=== PATIENT | female | born 1965 | race Caucasian/White ===

== ENCOUNTER 2017-10-26 17:17 | Emergency (ER) | payer OTHER ==
[2017-10-26 17:18] VITALS: BMI 23.3
[2017-10-26 17:32] VITALS: TEMP 99; O2SAT 100
--- NOTE | 2017-10-26 17:53 | ED PDOC ---
Arrival/HPI - General Chief Complaint: Headache Time Seen by Provider: 10/26/17 17:40 Historian: Patient - History of Present Illness Narrative History of Present Illness (Text): 10/26/17 17:45 Dalia Gann is a 51 year old, whose past medical history includes photophobia and tubal ligation, who presents to the emergency department complaining of right-sided throbbing headache with associated nausea and vomiting for 4 days. Patient notes that she has had similar headaches for 30 years. Patient's last imaging was a normal CT one year ago. Patient is an occasional drinker but does not do any drugs or drink any alcohol. Patient has no other complaints at this time. Time/Duration: < week Symptom Onset: Gradual Symptom Course: Unchanged Context: Home Associated Symptoms (Text): 10/26/17 17:57 Right sided throbbing headache similar to multiple previous similar headaches. Last imaging approximately one year ago. Some nausea and vomiting. Photophobia. No abdominal pain. No numbness tingling or paresthesias. No weakness. No relief with [id number] medication. No neck pain. No fever or chills. No trauma. Past Medical History - Provider Review Nursing Documentation Reviewed: Yes - Infectious Disease Hx of Infectious Diseases: None - Reproductive Menopause: No - Cardiac Hx Hypertension: Yes - Pulmonary Hx Respiratory Disorders: No - Neurological Hx Neurological Disorder: No - HEENT Hx HEENT Disorder: No - Renal Hx Renal Disorder: No - Endocrine/Metabolic Hx Diabetes Mellitus Type 2: Yes - Hematological/Oncological Hx Blood Disorders: No - Integumentary Hx Dermatological Disorder: No - Musculoskeletal/Rheumatological Hx Falls: No - Gastrointestinal Hx Gastrointestinal Disorders: No - Genitourinary/Gynecological Hx Genitourinary Disorders: No - Psychiatric Hx Psychophysiologic Disorder: No Hx Substance Use: No - Past Surgical History Past Surgical History: No Previous - Anesthesia Hx Anesthesia: No Hx Anesthesia Reactions: No Hx Malignant Hyperthermia: No - Suicidal Assessment Feels Threatened In Home Enviroment: No Family/Social History - Physician Review Nursing Documentation Reviewed: Yes Family/Social History: No Known Family HX Smoking Status: Former Smoker Hx Alcohol Use: Yes (social) Hx Substance Use: No Hx Substance Use Treatment: No Allergies/Home Meds Allergies/Adverse Reactions: Allergies No Known Allergies Allergy (Verified 07/16/14 11:36) Home Medications: Home Meds Medication Instructions Recorded Confirmed MetFORMIN [glucOPHAGE] 500 mg PO DAILY 10/26/17 10/26/17 Metoprolol Succinate 100 mg PO DAILY 10/26/17 10/26/17 Review of Systems - Physician Review All systems were reviewed & negative as marked: Yes - Review of Systems Constitutional: absent: Fevers, Night Sweats Eyes: absent: Vision Changes ENT: absent: Hearing Changes Respiratory: absent: SOB, Cough Cardiovascular: absent: Chest Pain Gastrointestinal: Nausea, Vomiting. absent: Abdominal Pain, Constipation, Diarrhea Genitourinary Female: absent: Dysuria, Frequency, Hematuria Musculoskeletal: absent: Arthralgias Skin: absent: Rash, Pruritis Neurological: Headache. absent: Dizziness, Focal Weakness, Gait Changes, Speech Changes, Facial Droop, Disequilibrium, Seizure Endocrine: absent: Diaphoresis Hemo/Lymphatic: absent: Adenopathy Psychiatric: absent: Anxiety, Depression Physical Exam Vital Signs Reviewed: Yes Vital Signs Temp Pulse Resp BP Pulse Ox 10/26/17 19:49 56 L 18 172/84 H 100 10/26/17 17:27 99 F 72 16 174/88 H 100 Temperature: Afebrile Blood Pressure: Hypertensive Pulse: Regular Respiratory Rate: Normal Appearance: Positive for: Uncomfortable, Other (mild pain and distress) Pain Distress: Mild Mental Status: Positive for: Alert and Oriented X 3 - Systems Exam Head: Present: Atraumatic, Normocephalic Pupils: Present: PERRL Extroacular Muscles: Present: EOMI Conjunctiva: Present: Normal Ears: Present: NORMAL TM, Normal Canal. No: Erythema Mouth: Present: Moist Mucous Membranes Pharnyx: No: ERYTHEMA, EXUDATE, TONSILS ENLARGED Neck: Present: Normal Range of Motion Respiratory/Chest: Present: Clear to Auscultation, Good Air Exchange. No: Respiratory Distress, Accessory Muscle Use Cardiovascular: Present: Regular Rate and Rhythm, Normal S1, S2. No: Murmurs Abdomen: Present: Normal Bowel Sounds. No: Tenderness, Distention, Peritoneal Signs Back: Present: Normal Inspection Upper Extremity: Present: Normal Inspection. No: Cyanosis, Edema Lower Extremity: Present: Normal Inspection. No: Edema Neurological: Present: GCS=15, CN II-XII Intact, Speech Normal, Motor Func Grossly Intact, Normal Sensory Function, Normal Cerebellar Funct, Gait Normal, Memory Normal, Normal 2Pt Descrimination Skin: Present: Warm, Dry, Normal Color. No: Rashes Psychiatric: Present: Alert, Oriented x 3, Normal Insight, Normal Concentration Medical Decision Making ED Course and Treatment: 10/26/17 17:55 Impression: 51 year old who presents to the emergency department complaining of right-sided throbbing headache with associated nausea and vomiting for 4 days. Plan: -- Imitrex and Zofran -- Reassess and disposition Prior Visits: Notes and results from previous visits were reviewed. Patient was last seen in the emergency department on 12/28/15 for right sided burning neck pain for 6 days. Patient was discharged home. Progress Notes: 10/26/17 20:20 Headache markedly improved and nausea markedly improved, though the patient did have some chest symptoms and dyspnea post Imitrex. 10/26/17 20:26 Tolerating by mouth. Hypertension check with PMD. - Lab Interpretations I have reviewed the lab results: Yes - Medication Orders Current Medication Orders: Discontinued Medications Ondansetron HCl (Zofran Odt) 4 mg PO STAT STA Stop: 10/26/17 17:49 Last Admin: 10/26/17 18:38 Dose: 4 mg Sumatriptan Succinate (Imitrex Inj) 6 mg SC STAT STA Stop: 10/26/17 17:48 Last Admin: 10/26/17 18:37 Dose: 6 mg Subcutaneous Administrations Document 10/26/17 18:37 EQ (Rec: 10/26/17 18:37 EQ [id number]) Injection Site MAR Injection Site Left Deltoid Charges for Administration # of Subcutaneous Administrations 1 - Scribe Statement The provider has reviewed the documentation as recorded by the Andre Valencia Provider Scribe Attestation: All medical record entries made by the Scribe were at my direction and personally dictated by me. I have reviewed the chart and agree that the record accurately reflects my personal performance of the history, physical exam, medical decision making, and the department course for this patient. I have also personally directed, reviewed, and agree with the discharge instructions and disposition. Disposition/Present on Arrival - Present on Arrival Any Indicators Present on Arrival: No History of DVT/PE: No History of Uncontrolled Diabetes: No Urinary Catheter: No History of Decub. Ulcer: No History Surgical Site Infection Following: None - Disposition Have Diagnosis and Disposition been Completed?: Yes Diagnosis: Migraine, Nausea, Hypertension Disposition: HOME/ ROUTINE Disposition Time: 20:27 Patient Plan: Discharge Condition: IMPROVED Discharge Instructions (ExitCare): Migraine Headache (ED), Acute Nausea and Vomiting (ED) Additional Instructions: Hypertension check with PMD. Follow-up in ER as needed. Tylenol or Advil as directed on bottle as needed. Prescriptions: Ondansetron [Zofran Odt] 4 mg SL Q6 #20 odt Referrals: Ruth Aviles, [Primary Care Provider] - Follow up with primary Forms: [facility] (Amharic), WORK NOTE
[2017-10-26 19:50] VITALS: RESP 18
[2017-10-26 20:58] VITALS: BP 159/64; PULSE 60
== END 2017-10-26 20:38 | disposition home or self-care (01) ==
LOC: ED 17:17
DX: G43.909 Migraine, unspecified, not intractable, without status migrainosus (principal); I10 Essential (primary) hypertension; R11.0 Nausea; E11.9 Type 2 diabetes mellitus without complications; Z87.891 Personal history of nicotine dependence
CPT/HCPCS: 96372; 99285; J3030